=== PATIENT | male | born 1960 | race Caucasian/White ===

== ENCOUNTER 2018-09-09 06:32 | Day surgery (SDC) | payer OTHER ==
[2018-09-09] MEDS ORDERED: fentaNYL 100 MCG/2 ML INJ IVP PRN (07:22)
[2018-09-09] MEDS ORDERED: ALTEPLASE 2 MG VIAL IVP PRN (07:22)
[2018-09-09] MEDS ORDERED: MIDAZOLAM 2 MG/2 ML VIAL IVP PRN (07:22)
[2018-09-09] MEDS ORDERED: NALOXONE HCL 0.4 MG/ML INJ IVP PRN (07:22)
[2018-09-09] MEDS ORDERED: ceFAZolin 2 GM/DEXTROSE 100 ML IV ONE (07:22)
[2018-09-09] MEDS ORDERED: FLUMAZENIL 0.5 MG/5 ML MDV IVP PRN (07:22)
[2018-09-09] MEDS ORDERED: MEPERIDINE 25 MG/ML SYR IVP PRN (07:22)
[2018-09-09] MEDS ORDERED: GLUCAGON HCL 1 MG VIAL IVP PRN (07:22)
[2018-09-09] MEDS ORDERED: PROTAMINE SULFATE 50 MG/5 ML VIAL IVP PRN (07:22)
[2018-09-09] MEDS ORDERED: HEPARIN 10,000 UNIT/10 ML MDV (1,000 UNIT/ML) IVP PRN (07:22)
[2018-09-09] MEDS ORDERED: NS 1,000 ML IV SCH (07:30)
[2018-09-09] MEDS ORDERED: MIDAZOLAM 2 MG/2 ML VIAL ONE (08:30)
[2018-09-09] MEDS ORDERED: NALOXONE HCL 0.4 MG/ML INJ ONE (08:30)
[2018-09-09] MEDS ORDERED: FLUMAZENIL 0.5 MG/5 ML MDV IVP ONE (08:30)
[2018-09-09] MEDS ORDERED: fentaNYL 100 MCG/2 ML INJ ONE ×2 (08:30→10:07)
[2018-09-09] MEDS ORDERED: LIDOCAINE 2% JELLY 20 ML (UROJECT) ONE (08:38)
--- NOTE | 2018-09-09 08:44 | PDPROPOC ---
Sedation Plan of Care ASA Classification: ASA 2 Mallampati Score: Class 2 Mallampati Reference Image:
--- NOTE | 2018-09-09 08:44 | PDRADPRE ---
Radiology History & Physical Indication for procedure: cancer Home medications: Fenofibrate Nanocrystallized [Tricor] 145 mg PO DAILY 08/27/18 [Last Taken Unknown] Lisinopril 20 mg PO DAILY 08/27/18 [Last Taken Unknown] Tylenol Extra Strength 500 mg PO BID 08/27/18 [Last Taken Unknown] Allergies/Adverse Reactions: oxycodone Allergy (Verified 08/27/18 16:24) Loss of consciousness Mental status: A&Ox3
[2018-09-09 08:45] LABS: INR 0.95 (0.83-1.16); PROTIME(PATIENT) 12.3 SEC (12.0-15.0)
[2018-09-09] MEDS ORDERED: LIDOCAINE 1% 300 MG/30 ML SDV ONE (08:48)
[2018-09-09] MEDS ORDERED: GLUCAGON HCL 1 MG VIAL ONE (09:10)
[2018-09-09] MEDS ORDERED: ATROPINE SULFATE 1 MG/ML VIAL ONE (09:11)
[2018-09-09] MEDS ORDERED: ONDANSETRON 4 MG/2 ML VIAL ONE (09:38)
[2018-09-09] MEDS ORDERED: ONDANSETRON 4 MG/2 ML VIAL IVP PRN (10:22)
[2018-09-09] MEDS ORDERED: ACETAMINOPHEN 325 MG TAB PO PRN (10:22)
--- NOTE | 2018-09-09 10:23 | PDRADPN ---
Radiology Procedure Note Date of Procedure: 09/09/18 Radiologist: Leland Erazo Anesthesia: IV Sedation Pre-op Diagnosis: neck cancer Post-op Diagnosis: same Procedure: percutaneous gastrostomy tube Inf/Abcess present in the surg proc area at time of surgery?: No
[2018-09-09 13:45] VITALS: BP 143/96
[2018-09-09] MEDS ORDERED: IOPAMIDOL (ISOVUE-300) 100 ML BTL ONE (14:14)
== END 2018-09-09 13:45 | disposition home or self-care (01) ==
LOC: FIMAGING 06:32
PROVIDERS: ATTEND Radiology Diagnostic Radiology
PROC: 0DH63UZ Insertion of Feeding Device into Stomach, Percutaneous Approach (ICD-10-PCS; principal; 2018-09-09 10:30)
DX: C76.0 Malignant neoplasm of head, face and neck (principal)
CPT/HCPCS: 49440; 76937; 99152; 99153; C1729; C1758; C1769; J0461; J0690; J1610; J2250; J2270; J2310; J2405; J3010; Q9967